=== PATIENT | male | born 2000 | race Caucasian/White ===

== ENCOUNTER 2024-01-25 15:11 | Emergency (ER) | payer BC ==
[~2024-01-25] VITALS: Ht 190.5 cm; Wt 103.3 kg
[2024-01-25 15:47] LABS: BASOPHILS 0.2 % (0-2); EOSINOPHILS 3.5 % (0-6); HEMATOCRIT 41.7 % (35.0-50.0); HEMOGLOBIN 14.2 g/dL (12.0-18.0); LYMPHOCYTES 18.6 % (24-44); MCH 30.3 (27-36); MCV 89.2 fl (81-99); MONOCYTES 13.2 % (0-12); NEUTROPHILS 64.5 % (39-80); PLATELET COUNT 150 K/uL (140-440); RBC 4.68 M/ul (4.3-5.7); RDW 12.6 (10.5-15.0)
[2024-01-25 16:03] LABS: ALBUMIN 4.2 g/dL (3.4-5.0); ALBUMIN/GLOBULIN RATIO 1.5 (1.1-2.4); ANION GAP 9.7 (7-21); BILIRUBIN, TOTAL 0.6 ng/dL (0.2-1.0); BUN/CREATININE RATIO 16.19 (6.0-28.6); CREATININE, SERUM 1.05 mg/dL (0.70-1.30); MAGNESIUM 1.7 mg/dL (1.8-2.4); POTASSIUM 3.7 mmol/L (3.5-5.1)
[2024-01-25 17:24] LABS: BILIRUBIN, URINE NEGATIVE (negative); BLOOD/HGB, URINE NEGATIVE (Negative); KETONE, URINE NEGATIVE (Negative); LEUK ESTERASE, URINE NEGATIVE (negative); NITRITE, URINE NEGATIVE (negative); PH, URINE 6.5 (5-7)
[2024-01-25] MEDS ORDERED: ONDANSETRON ODT4 MG PO (19:19)
[2024-01-25] MEDS ORDERED: PROTONIX40 MG PO (19:19)
[2024-01-25 19:36] VITALS: BP 136/87
== END 2024-01-25 19:38 | disposition home or self-care (01) ==
LOC: ED 15:11
PROVIDERS: Emergency Medicine
DX: K29.70 Gastritis, unspecified, without bleeding (principal); K29.80 Duodenitis without bleeding; Z88.8 Allergy status to other drugs, medicaments and biological substances
CPT/HCPCS: 36415; 74177; 80053; 81003; 83690; 83735; 85025; 99284-25; Q9967